=== PATIENT | male | born 1970 | race Caucasian/White ===

== ENCOUNTER 2016-12-23 10:00 | Outpatient (CLI) | payer OTHER | END 2016-12-23 10:01 | disposition home or self-care (01) | LOC: SC 10:00 | PROVIDERS: ATTEND Specialist | DX: R06.81 Apnea, not elsewhere classified (principal); R06.83 Snoring; E66.9 Obesity, unspecified; R53.83 Other fatigue | CPT/HCPCS: 99205; 99212 ==

== ENCOUNTER 2017-02-23 20:24 | Outpatient (CLI) | payer OTHER | END 2017-02-23 20:25 | disposition home or self-care (01) | LOC: SC 20:24 | PROVIDERS: ATTEND Specialist | DX: R06.83 Snoring (principal) | CPT/HCPCS: 95810 ==

== ENCOUNTER 2020-07-14 07:40 | Outpatient (CLI) | payer OTHER ==
--- NOTE | 2020-07-16 09:40 | MRI Report ---
PROCEDURE: Elbow RT W/O INDICATIONS: PAIN IN RT ARM TECHNIQUE: Noncontrast coronal proton density fast spin echo and T2 fast spin echo with fat saturation, axial an d sagittal T1 spin echo and T2 fast spin echo with fat saturation through the elbow. COMPARISON: None. FINDINGS: Image quality: Excellent. Lateral structures: The lateral ulnar collateral ligament and radial collateral ligament both appear intact. The overlying common extensor tendon demonstrate mild tendinosis. Medial structures: The ulnar collateral ligament appears intact. The overlying common flexor tendon appears normal. The ulnar nerve appears normal in size and signal within the cubital tunnel. Anterior structures: There is mild tendinosis of the distal biceps tendon near its insertion onto th e radial tuberosity. The distal brachialis tendon is intact. A small amount of edema is seen in the b icipital radial bursa that may indicate mild bursitis. The median and radial neurovascular bundles ap pear normal; no focal muscle atrophy to suggest nerve impingement. Posterior structures: The triceps tendon appears intact. No olecranon bursal fluid. Bone and cartilage: No bone marrow contusions or fractures. No osteochondral injuries. IMPRESSION: 1. Mild distal biceps tendinosis. Mild bicipitoradial bursitis. 2. Mild tendinosis of the common extensor tendon at the origin Reviewed by: Nemesio Dudley MD on 07/16/2020 9:38 AM PST Approved by: Nemesio Dudley MD on 07/16/2020 9:38 AM [facility] Station ID: [id number]
== END 2020-07-14 07:41 | disposition home or self-care (01) ==
LOC: DI 07:40
PROVIDERS: ATTEND Family Medicine
DX: M79.601 Pain in right arm (principal); M71.521 Other bursitis, not elsewhere classified, right elbow; M77.8 Other enthesopathies, not elsewhere classified